=== PATIENT | female | born 1995 | race American Indian/Alaskan Native ===

== ENCOUNTER 2019-05-03 21:28 | Emergency (ER) | payer MEDICAID ==
--- NOTE | 2019-05-03 21:51 | Event Note ---
ED Screening Note Date of service: 05/03/19 Time: 21:46 ED Screening Note: This is a 23 y.o. F. that presents to the ER with vaginal bleeding. Patient states she had a confirmed today at a clinic. She noticed hematuria a few minutes [employer]. She denies abdominal pain, back pain, vaginal discharge, or dysuria. LMP 02/15/19, G1A0 This initial assessment/diagnostic orders/clinical plan/treatment(s) is/are subject to change based on patients health status, clinical progression and re- assessment by fellow clinical providers in the ED. Further treatment and workup at subsequent clinical providers discretion. Patient/guardian urged not to elope from the ED as their condition may be serious if not clinically assessed and managed. Initial orders include: Labs
--- NOTE | 2019-05-03 22:25 | Emergency Department Report ---
ED Female HPI - General Chief complaint: Abdominal Pain Stated complaint: 6 WEEKS,CRAMPING Time Seen by Provider: 05/03/19 21:46 Source: patient Mode of arrival: Ambulatory Limitations: No Limitations - History of Present Illness Initial comments: Patient is 23 years old female 1 para 0 at 6 week gestation. Patient presented to the ER complaining of vaginal spotting that started this afternoon associated with pelvic cramping. Patient denied any history of vaginal discharge recently. No fever or chills. Patient denied any dizziness or shortness of breath. MD Complaint: vaginal bleeding, pelvic pain -: This afternoon Radiation: non-radiating Severity: mild Quality: cramping Are you Now?: Yes Associated Symptoms: denies other symptoms - Related Data Allergies Allergy/AdvReac Type Severity Reaction Status Date / Time No Known Allergies Allergy Verified 05/03/19 21:31 ED Review of Systems ROS: Stated complaint: 6 WEEKS,CRAMPING Other details as noted in HPI Comment: All other systems reviewed and negative Constitutional: denies: chills, fever Respiratory: denies: cough Gastrointestinal: abdominal pain. denies: nausea, vomiting Neurological: denies: headache ED Past Medical Hx - Past Medical History Previous Medical History?: No - Surgical History Past Surgical History?: No - Social History Smoking Status: Never Smoker Substance Use Type: None ED Physical Exam - General Limitations: No Limitations General appearance: alert, in no apparent distress - Head Head exam: Present: atraumatic, normocephalic, normal inspection - Eye Eye exam: Present: normal appearance, PERRL - ENT ENT exam: Present: normal exam, normal orophraynx, mucous membranes moist - Neck Neck exam: Present: normal inspection - Respiratory Respiratory exam: Present: normal lung sounds bilaterally - Cardiovascular Cardiovascular Exam: Present: normal heart sounds - GI/Abdominal GI/Abdominal exam: Present: soft, normal bowel sounds. Absent: distended, tenderness, guarding, rebound, rigid, organomegaly, mass, bruit, pulsatile mass, hernia - Extremities Exam Extremities exam: Present: normal inspection, full ROM, normal capillary refill - Back Exam Back exam: Present: normal inspection, full ROM. Absent: CVA tenderness (R), CVA tenderness (L), muscle spasm, paraspinal tenderness, vertebral tenderness - Neurological Exam Neurological exam: Present: alert, oriented X3, CN II-XII intact - Psychiatric Psychiatric exam: Present: normal mood - Skin Skin exam: Present: warm, intact, normal color ED Course Vital Signs 05/03/19 21:33 Temperature 97.9 F Pulse Rate 84 Respiratory 18 Rate Blood Pressure 125/80 O2 Sat by Pulse 100 Oximetry ED Medical Decision Making - Lab Data Result diagrams: 05/03/19 21:52 - Radiology Data Radiology results: report reviewed - Medical Decision Making Patient is 23 years old female 1 para 0 at 6 week gestation. Patient presented to the ER complaining of vaginal spotting that started this afternoon associated with pelvic cramping. Patient denied any history of vaginal dis charge recently. No fever or chills. Patient denied any dizziness or shortness of breath. ultrasound show failed intrauterine at 6 weeks. I discussed the patient is Dr. Linda, OB post secondary professional. She advised the patient can be discharged home and to follow up with her in our office in the next 2-3 days. Critical care attestation.: If time is entered above; I have spent that time in minutes in the direct care of this critically ill patient, excluding procedure time. ED Disposition Clinical Impression: demise before 22 weeks with retention of fetus Disposition: DC-01 TO HOME OR SELFCARE Is pt being admited?: No Condition: Stable Instructions: Abdominal Pain in (ED) Referrals: PRIMARY CAREMD [Primary Care Provider] - 3-5 Days FELIPE LINDA MD [Staff Physician] - 3-5 Days
[2019-05-03 22:50] LABS: Basophils % (Auto) 0.4 % (0.0-1.8); Eosinophils # (Auto) 0.3 K/mm3 (0.0-0.4); Eosinophils % (Auto) 2.6 % (0.0-4.3); Hematocrit 39.1 % (30.3-42.9); Hemoglobin 13.3 gm/dl (10.1-14.3); Lymphocytes # (Auto) 3.5 K/mm3 (1.2-5.4); Lymphocytes % (Auto) 32.2 % (13.4-35.0); Mean Corpuscular HGB Conc 34 % (30-34); Mean Corpuscular Volume 97 fl (79-97); Monocytes # (Auto) 0.7 K/mm3 (0.0-0.8); Platelet Count 340 K/mm3 (140-440); Red Blood Count 4.04 M/mm3 (3.65-5.03); Red Cell Distribution Width 14.2 % (13.2-15.2)
[2019-05-03 23:13] LABS: Bilirubin,Urine NEG (Negative); Blood,Urine SM (Negative); Color,Urine Yellow (Yellow); Mucus,Urine 1+ /HPF; Protein,Urine <15 mg/dL mg/dL (Negative); Urobilinogen,Urine < 2.0 mg/dL (<2.0)
--- NOTE | 2019-05-03 23:15 | Ultrasound Report ---
ULTRASOUND OBSTETRIC INDICATION: Possible miscarriage. Approximate clinical gestational age of 11 weeks. TECHNIQUE: Transabdominal and Transvaginal. COMPARISON: None available. FINDINGS: GESTATIONAL SAC: Well-defined oval shape and intrauterine in location. YOLK SAC: No significant abnormality. EMBRYO/FETUS: No cardiac activity is detected. - [place]-Rump Length = 0.38 cm = 6 weeks, 0 day(s). ADNEXA: There is a possible evolving corpus luteum in the left ovary measuring 1.9 x 1.5 cm. No addit ional significant abnormality. FREE FLUID: None. ADDITIONAL FINDINGS: A small area of subchorionic hemorrhage is noted measuring 7 x 7 mm. IMPRESSION: Failed intrauterine as above. Signer Name: Joe Weathers MD Signed: 05/03/2019 11:11 PM Workstation Name: [id number]
--- NOTE | 2019-05-03 23:15 | Ultrasound Report ---
ULTRASOUND OBSTETRIC INDICATION: Possible miscarriage. Approximate clinical gestational age of 11 weeks. TECHNIQUE: Transabdominal and Transvaginal. COMPARISON: None available. FINDINGS: GESTATIONAL SAC: Well-defined oval shape and intrauterine in location. YOLK SAC: No significant abnormality. EMBRYO/FETUS: No cardiac activity is detected. - [place]-Rump Length = 0.38 cm = 6 weeks, 0 day(s). ADNEXA: There is a possible evolving corpus luteum in the left ovary measuring 1.9 x 1.5 cm. No addit ional significant abnormality. FREE FLUID: None. ADDITIONAL FINDINGS: A small area of subchorionic hemorrhage is noted measuring 7 x 7 mm. IMPRESSION: Failed intrauterine as above. Signer Name: Joe Weathers MD Signed: 05/03/2019 11:11 PM Workstation Name: [id number]
[2019-05-04 01:58] VITALS: BP 114/76
== END 2019-05-04 01:58 | disposition home or self-care (01) ==
LOC: ED 21:28
DX: O36.4XX0 Maternal care for intrauterine death, not applicable or unspecified (principal); Z3A.01 Less than 8 weeks gestation of pregnancy
CPT/HCPCS: 36415; 76801; 76817; 81001; 84702; 85025; 86900; 86901; 99284